=== PATIENT | male | born 1960 | race Caucasian/White ===

== ENCOUNTER 2016-10-18 09:47 | Emergency (ER) | payer BC ==
[2016-10-18 10:38] VITALS: BP 156/114
--- NOTE | 2016-10-18 11:17 | UC ---
UC General HPI - HPI Summary HPI Summary: The patient comes in today for: 1. Right upper thigh pain: Onset: 2 days ago. Palliative/provocative: Flexion makes the pain worse. Standing makes it worse. Quality: Ache Region: Right anterior thigh Severity: Sittin/10 Time: Constant. Associated symptoms: Event: At work, he walked into a pylon. There was immediate pain. He drove home, and applied ice. She has been taking aspirin. He has massaged the area with a frozen water bottle. Previous injury: None. Previous treatment: ice, massage, compression wrap, aspirin. He states that 2 days ago, he had a much more difficult time with walking. He states that he was not able to flex the right leg. However, yesterday, he could flex it about 30 degrees and now he is able to flex it about 90 degrees. He states that he has improved 25% He is taking aspirin for this and wants to continue with it--no other medications. He wants to be off work for 4 days and a not requesting a work handicapped parking permit at [place] for a week thereafter. * - History of Current Complaint Chief Complaint: UCLowerExtremity Stated Complaint: THIGH INJURY Time Seen by Provider: 10/18/16 11:09 Hx Obtained From: Patient - Allergy/Home Medications Allergies/Adverse Reactions: Allergies Allergy/AdvReac Type Severity Reaction Status Date / Time Latex Allergy Rash Verified 10/18/16 10:32 Home Medications: Home Medications Aspirin TAB* [Aspirin 325 MG TAB*] 2 tab PO PRN 10/18/16 [History] [place]-3 Fatty Acids [Fish Oil] 600 mg PO DAILY 10/18/16 [History Confirmed 10/18] PMH/Surg Hx/FS Hx/Imm Hx Previously Healthy: Yes - Surgical History Surgical History: Yes Surgery Procedure, Year, and Place: left knee SURGERY 2002-. TOE - Family History Known Family History: Positive: Hypertension, Diabetes - Social History Occupation: Employed Full-time Lives: Alone Alcohol Use: Daily - "He drinks "4 pints and a couple of shots" 4-5 days a week. Substance Use Type: None Smoking Status (MU): Never Smoked Tobacco Type: Cigars Amount Used/How Often: 2-3 per year Have You Smoked in the Last Year: No Review of Systems Constitutional: Negative Skin: Rash Eyes: Negative ENT: Negative Respiratory: Negative Cardiovascular: Negative Gastrointestinal: Negative Genitourinary: Negative All Other Systems Reviewed And Are Negative: Yes Physical Exam Triage Information Reviewed: Yes Appearance: Well-Appearing, No Pain Distress, Well-Nourished Vital Signs: Initial Vital Signs Temp 98.7 F 10/18/16 10:33 Pulse 75 10/18/16 10:33 Resp 16 10/18/16 10:33 BP 156/114 10/18/16 10:33 Pulse Ox 99 10/18/16 10:33 Vital Signs Reviewed: Yes Eyes: Positive: Conjunctiva Clear. Negative: Discharge ENT: Positive: Hearing grossly normal. Negative: Pharyngeal erythema, Nasal congestion, TM bulging, TM dull, TM red, Tonsillar swelling, Tonsillar exudate Dental: Negative: Gross Decay/Caries @, Dental Fracture @ Neck: Positive: Supple, Nontender, No Lymphadenopathy. Negative: Nuchal Rigidity Respiratory: Positive: Chest non-tender, Lungs clear, No respiratory distress, No accessory muscle use. Negative: Crackles, Wheezing Cardiovascular: Positive: RRR, No Murmur Abdomen Description: Positive: Nontender, No Organomegaly, Soft. Negative: Distended, Guarding Bowel Sounds: Positive: Present Musculoskeletal: Positive: Other: - There is ecchymosis of the right anterior thigh. There is firmness/induration, which the patient states is significantly better than before. He has a larger muscular calf on his lower right leg than his left, but he states that this is something that has been noticed well before the event. Neurological: Positive: Alert, Muscle Tone Normal Psychological: Positive: Age Appropriate Behavior, Consolable Skin: Negative: breakdown Course/Dx - Course Course Of Treatment: Patient was told of his treatment options. At this time, he just wants to continue with his aspirin, home PT and time off with a handicapped parking request. - Differential Dx - Multi-Symptom Provider Diagnoses: Contusion of the right anterior thigh. Discharge - Discharge Plan Condition: Stable Disposition: HOME Patient Education Materials: Contusion in Adults (ED) Forms: *School Release, *Work Release Referrals: Mushtaq Murillo MD [Primary Care Provider] - 1 Week (The patient comes in today for: 1. Onset: Palliative/provocative: Quality: Region: Severity: Time: Associated symptoms: *)
== END 2016-10-18 11:45 | disposition home or self-care (01) ==
LOC: UCEAST 09:47
DX: S70.11XA Contusion of right thigh, initial encounter (principal); W22.8XXA Striking against or struck by other objects, initial encounter; Y93.01 Activity, walking, marching and hiking; Y92.69 Other specified industrial and construction area as the place of occurrence of the external cause; Y99.9 Unspecified external cause status
CPT/HCPCS: 99211; G0463

== ENCOUNTER 2017-02-04 08:43 | Day surgery (SDC) | payer BC ==
[2017-02-04] MEDS ORDERED: Lidocaine 1% MPF wEPI 200,000* 30 ML SDV ONE (09:53)
[2017-02-04] MEDS ORDERED: Sodium Bicarbonate 8.4% IV* 50 ML VIAL ONE (09:53)
[2017-02-04 11:14] VITALS: BP 137/95
--- NOTE | 2017-02-05 01:18 | OP ---
OPERATIVE REPORT: DATE OF OPERATION: 02/04/17 - [place] DATE OF : 60 SURGEON: Nick Rosen MD PITCH FILLER: MIKALA Campbell ANESTHESIOLOGIST: None. ANESTHESIA: Local only with 1% lidocaine with epinephrine and bicarbonate. PRE-OP DIAGNOSIS: Left small trigger finger. POST-OP DIAGNOSIS: Left small trigger finger. OPERATIVE PROCEDURE: Release of A1 kyree, left small trigger finger. INDICATIONS: Leonard has had a trigger finger that is very severe, it is recurrent after an injection. We talked about risks and benefits. He wanted to proceed. ESTIMATED BLOOD LOSS: 2 mL. COMPLICATIONS: None. FINDINGS: As expected. DESCRIPTION OF PROCEDURE: Leonard was seen in the preoperative holding area. We had a time-out. Then, I infiltrated the area with 1% lidocaine with epinephrine and bicarbonate. We then came back to the operating room short time later where the arm was prepped and draped in the usual fashion and time- out was performed. I made a 1 cm longitudinal incision right over the A1 kyree. Dissection was carried down bluntly and soft tissue throughout the tendon sheath was retracted with Ragnell retractors. I then incised the A1 kyree with a 15 blade just radial to the midline. This was extended proximally and distally with the tenotomy scissors. Once the release was completed, I had him flex and extend the finger and the hand multiple times. It had been triggering every single time he flexed the finger down preop and now there was no triggering. We went ahead and irrigated out the wounds. Skin was closed with 4-0 nylon suture. Wound was dressed with Xeroform, 4x4's, sterile Webril, and an Nabeel bandage. He was then taken to recovery room in stable condition. [id number]/[facility] #: [id number] [facility]ITALDayanara
== END 2017-02-04 10:50 | disposition home or self-care (01) ==
LOC: OREAST 08:43
PROVIDERS: ATTEND Orthopaedic Surgery Hand Surgery
DX: M65.352 Trigger finger, left little finger (principal)
CPT/HCPCS: J2001

== ENCOUNTER 2022-11-26 06:27 | Observation (INO) ==
[~2022-11-26 06:27] MED LIST: Buffered Lidocaine 1% SYRIN 1 ml INTRADERM ONE; Lactated Ringers 1000 ml BAG 1,000 ML IV SCH; Naloxone 0.4 mg VIAL 0.4 mg/ml 1 ml VIAL IV PRN; Ondansetron 4 mg VIAL 2 MG/ML 2 ml VIAL IV PRN; fentaNYL 100 mcg/2 ml 50 MCG/ML VIAL IV PRN; oxyCODONE/Acetamin 5/325 mg TAB PO PRN
[2022-11-26] MEDS ORDERED: ceFAZolin 2 GM in NS PREMIX 2 GM/100 ML BAG IVPB ONE (06:47)
[2022-11-26] MEDS ORDERED: Glycopyrrolate IV 0.2 MG/ML 1 ML VIAL ONE (06:52)
[2022-11-26] MEDS ORDERED: Ondansetron 4 mg VIAL 2 MG/ML 2 ml VIAL ONE (06:52)
[2022-11-26] MEDS ORDERED: Phenylephrine IV 10 MG/ML 1 ml VIAL ONE (06:52)
[2022-11-26] MEDS ORDERED: Lidocaine 2% PF 5 ML VIAL ONE (06:52)
[2022-11-26] MEDS ORDERED: Dexamethasone IV 4 MG/ML VIAL 1 ml VIAL ONE (06:52)
[2022-11-26] MEDS ORDERED: Midazolam 2 mg/2 ml VIAL 1 mg/ml 2 ml VIAL (2 mg) ONE (07:04)
[2022-11-26] MEDS ORDERED: fentaNYL 100 mcg/2 ml 50 MCG/ML VIAL ONE ×2 (07:05→11:03)
[2022-11-26] MEDS ORDERED: ROPIVACAINE 5 MG/ML 30 ML BTL (0.5%) ONE ×2 (07:06→08:25)
[2022-11-26 07:29] LABS: Rapid COVID-19 Molecular Undetected (Undetected)
[2022-11-26] MEDS ORDERED: Acetaminophen IV 1 GM/100ML 1,000 MG/100 ML BAG IV ONE (09:47)
[2022-11-26] MEDS ORDERED: Tranexamic Acid 1,000 MG/10 ML SDV ONE (09:53)
[2022-11-26] MEDS ORDERED: Propofol 10 MG/ML 20 ML BTL ONE ×2 (10:10→11:01)
[2022-11-26] MEDS ORDERED: Lactulose 30 ml UDC PO PRN (11:41)
[2022-11-26] MEDS ORDERED: Ondansetron 4 mg VIAL 2 MG/ML 2 ml VIAL IV PRN (11:41)
[2022-11-26] MEDS ORDERED: Morphine 2 MG/ML SYRINGE IV PRN (11:41)
[2022-11-26] MEDS ORDERED: Magnesium Hydroxide LIQ 30 ML UDC PO PRN (11:41)
[2022-11-26] MEDS ORDERED: Ondansetron ODT 4 mg TAB 4 MG TAB PO PRN (11:41)
[2022-11-26] MEDS: Lactated Ringers 1000 ml BAG 1,000 ML IV SCH (14:13)
[2022-11-26] MEDS: ceFAZolin 1 GM ADVAN 1 GM in NS 0.9% 50 ML 50 ML IVPB SCH (17:36)
[2022-11-26] MEDS: Magnesium Hydroxide LIQ 30 ML UDC PO SCH (20:47)
[2022-11-27] MEDS: Lactated Ringers 1000 ml BAG 1,000 ML IV SCH (00:09)
[2022-11-27] MEDS: ceFAZolin 1 GM ADVAN 1 GM in NS 0.9% 50 ML 50 ML IVPB SCH ×2 (01:45→08:58)
[2022-11-27 07:54] LABS: Hematocrit 31.8 % (38-53); Hemoglobin 11.3 g/dL (13.2-16.3); Mean Platelet Volume 7.5 fL (7.5-11.2); Platelet Count 208 10^3/uL (150-450)
[2022-11-27 08:09] LABS: Calcium 8.5 mg/dL (8.6-10.3); Creatinine, Serum 1.14 mg/dL (0.67-1.17); Potassium 3.5 mmol/L (3.5-5.0); eGFR CKD-EPI 72.7 (>60)
[2022-11-27] MEDS: Magnesium Hydroxide LIQ 30 ML UDC PO SCH (08:31)
[2022-11-27] MEDS ORDERED: Vitamin THERAPEUTIC TAB PO SCH (09:00)
[2022-11-27 10:33] VITALS: BP 106/63
== END 2022-11-27 13:00 | disposition home or self-care (01) ==
LOC: SSU 06:27 → OR 06:27
PROVIDERS: ADMIT Orthopaedic Surgery Adult Reconstructive Orthopaedic Surgery; ATTEND Orthopaedic Surgery Adult Reconstructive Orthopaedic Surgery